=== PATIENT | female | born 1965 | race Caucasian/White ===

== ENCOUNTER → 2016-09-09 | Outpatient (CLI) | payer BC ==
[~2016-09-09] MED LIST: MTR600X PO
--- NOTE | 2016-09-10 12:31 | MAMMOGRAPHY REPORT ---
BILATERAL DIGITAL SCREENING MAMMOGRAM TOMOSYNTHESIS WITH CAD: 09/09/2016 CLINICAL HISTORY: Routine screening. Patient has no complaints. TECHNIQUE: Breast tomosynthesis in addition to standard 2D mammography was performed. Current study was also evaluated with a Computer Aided Detection (CAD) system. COMPARISON: Comparison is made to exams dated: 09/06/2015 mammogram, 09/04/2014 mammogram, 09/01/2013 ma mmogram, 08/26/2012 mammogram, 08/25/2011 mammogram, and 08/21/2010 mammogram - [facility] enter. BREAST COMPOSITION: The tissue of both breasts is heterogeneously dense, which may obscure small ma sses. FINDINGS: The parenchymal pattern is similar to prior exams. There are benign appearing stable micr ocalcifications in the middle and anterior aspect of each breast. No new suspicious mass, data integration architect ural distortion or cluster of microcalcifications is seen. IMPRESSION: ACR BI-RADS CATEGORY 1: NEGATIVE There is no mammographic evidence of malignancy. A 1 year screening mammogram is recommended. The p atient will receive written notification of the results. Approximately 10% of breast cancers are not detected with mammography. A negative mammographic repor t should not delay biopsy if a clinically suggestive mass is present. Mandy Sanchez M.D. ay/:09/09/2016 16:22:25 Deputy Harbormaster: Malka Marx, [facility] letter sent: Normal 1/2 BI-RADS Code: ACR BI-RADS Category 1: Negative
== END | disposition home or self-care (01) ==
LOC: C.MAMM 07:14
PROVIDERS: ATTEND Obstetrics & Gynecology
DX: Z12.31 Encounter for screening mammogram for malignant neoplasm of breast (principal)

== ENCOUNTER → 2017-10-14 | Outpatient (CLI) | payer BC ==
--- NOTE | 2017-10-14 15:37 | MAMMOGRAPHY REPORT ---
BILATERAL DIGITAL SCREENING MAMMOGRAM TOMOSYNTHESIS WITH CAD: 10/14/2017 CLINICAL HISTORY: Routine screening. Patient has no complaints. TECHNIQUE: Breast tomosynthesis in addition to standard 2D mammography was performed. Current study was also evaluated with a Computer Aided Detection (CAD) system. COMPARISON: Comparison is made to exams dated: 09/09/2016 mammogram, 09/06/2015 mammogram, 09/04/2014 mamm ogram, 09/01/2013 mammogram, 08/26/2012 mammogram, and 08/25/2011 mammogram - [facility] er. BREAST COMPOSITION: The tissue of both breasts is heterogeneously dense, which may obscure small mas ses. FINDINGS: The parenchymal pattern is unchanged. No developing mass, architectural distortion or clus ter of suspicious microcalcifications is seen in either breast. IMPRESSION: ACR BI-RADS CATEGORY 2: BENIGN There is no mammographic evidence of malignancy. A 1 year screening mammogram is recommended. The pa tient will receive written notification of the results. Approximately 10% of breast cancers are not detected with mammography. A negative mammographic report should not delay biopsy if a clinically suggestive mass is present. Mandy Sanchez M.D. ay/:10/14/2017 10:48:30 Fabrics And Material Cutter: Malka MCALLISTER(Viridiana)(Jacky), [facility] letter sent: Normal 1/2 BI-RADS Code: ACR BI-RADS Category 2: Benign
== END | disposition home or self-care (01) ==
LOC: C.MAMM 10:01
PROVIDERS: ATTEND Obstetrics & Gynecology
DX: Z12.31 Encounter for screening mammogram for malignant neoplasm of breast (principal)

== ENCOUNTER 2025-05-12 10:09 | Observation (INO) ==
--- NOTE | 2025-04-12 15:07 | Anesthesiology Consultation ---
Date of Service April 12, 2025 Assessment & Plan (1) Encounter for pre-operative examination: - bilat TKA anesthesia risks discussed with patient vs staged and patient wishes to proceed with bilat TKA. Patient is not an outpatient joint candidate. Chart Review Chart Review: Acceptable Risk for Surgery and Patient seen in Pre Admission Testing Teaching & Discussion Pre-Anesthesia Teaching/Discussion Notes: Instructed NPO after midnight before surgery, except medications with 15 cc of water. Medication instructions provided according to the PAT guidelines. 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 Exercise / Class Metabolic Activity II 4-5 Yardwork/Stairs/Walk up hill (denies chest discomfort or shortness of breath with one flight of stairs) Past Family History Family History Father Emphysema lung Other No family history of adverse response to anesthesia Ovarian cancer Denies family history of Breast cancer Colorectal cancer Past Surgical History Surgical History H/O abdominal hysterectomy H/O bilateral mastectomy 2021? H/O breast biopsy History of colonoscopy History of mandibular surgery S/P dilation and curettage S/P LEEP of cervix S/P tubal ligation [place] teeth removed Past Anesthesia History No Hx of Anesthesia Complications and No Family Hx of Anesthesia Complications History of PONV No Hx of PONV and Hx of Motion Sickness Social History Smoking Status: Former smoker Do You Dip or Chew Tobacco: No Smoking End Date: smoked in high school Hx Alcohol Use: Yes alcohol intake frequency: holidays/special occasions only substance use type: does not use Review of Systems Patient denies chest pain, shortness of breath, dyspnea on exertion, snoring, witnessed apneas, reflux, fever, chills, cough, wheezing, or palpitations. Physical Exam Vital Signs Vitals BP 133/77 P 77 TEMP 98.3 SP02 94% on RA RESP 18 Physical Patient resting comfortably in chair in no acute distress, alert and oriented, responding appropriately throughout visit Full cervical extension range of motion without pain TMD 3.5 finger breadths Mallampati Score 2 Dentition: intact, denies chipped or loose teeth, caps/crowns, implants or bridges Lungs: normal respiratory effort. Good air movement, clear throughout to auscultation, no adventitious breath sounds Cardiac: regular rate and rhythm, no murmurs noted Carotid arteries: negative bruit bilat Lab Results Anesthesia Preop Results Results Anesthesia Widget: WBC 7.95 K/ul (4.8-10.8) 04/12/25 Hgb 12.6 g/dl (12.0-16.0) 04/12/25 Hct 39.8 % (37.0-47.0) 04/12/25 Plt 322 K/uL (130-400) 04/12/25 Na 140 mmol/L (136-145) 04/12/25 K 4.4 mmol/L (3.5-5.1) 04/12/25 Cl 107 mmol/L (98-107) 04/12/25 CO2 28 mmol/L (21-32) 04/12/25 BUN 26 mg/dl (6-23) H 04/12/25 Creat 0.95 mg/dl (0.6-1.2) 04/12/25 Glucose Level 100 mg/dl (70-99(Fasting)) H 04/12/25 PT 10.8 Seconds (9.0-12.0) 04/12/25 PTT 26 Seconds (21-31) 04/12/25 INR 1.0 (0.9-1.1) 04/12/25 Blood Type AB Negative 04/12/25 Antibody Screen NEGATIVE 04/12/25 Testing Electrocardiogram Date: 04/12/25 NSR, rate 74 bpm Incomplete RBBB Minimal voltage criteria for LVH, may be normal variant When compared with January 31, 2025 EKG, Incomplete RBBB is now present Chest X-Ray Date: 04/12/25 No active disease
[~2025-05-12 10:09] MED LIST changes: +MIDAZOLAM HCL 1 MG/ML 2ML VIAL ONE; -MTR600X PO; +ROPIVACAINE 0.5% 5 MG/ML 30 ML VIAL ONE
[2025-05-12] MEDS ORDERED: PROPOFOL IV EMULSION 10 MG/ML 20 ML VIAL IV ONE (10:28)
[2025-05-12] MEDS ORDERED: MIDAZOLAM HCL 1 MG/ML 2ML VIAL ONE (10:28)
[2025-05-12] MEDS ORDERED: LIDOCAINE 2% 2 ML VIAL/AMP(20MG/ML) INFIL ONE (10:28)
[2025-05-12] MEDS ORDERED: ONDANSETRON INJ 2 MG/ML 2 ML VIAL ONE (10:28)
[2025-05-12] MEDS: ACETAMINOPHEN 500 MG TAB PO SCH ×2 (10:38→22:23)
[2025-05-12] MEDS: FAMOTIDINE 20 MG TAB PO SCH (10:39)
[2025-05-12] MEDS: LR 60ML/HR IV SCH (10:39)
[2025-05-12] MEDS: GABAPENTIN 600 MG DOSE PO SCH (10:39)
[2025-05-12] MEDS: LR 500ML BOLUS, THEN 15ML/HR IV SCH (11:02)
[2025-05-12] MEDS: dexAMETHasone**PF** 10 MG/ML VIAL IV SCH (11:02)
--- NOTE | 2025-05-12 11:07 | History & Physical Bridge Note ---
Date of Service May 12, 2025 History & Physical Bridge Note I have examined the patient, reviewed the History & Physical and in the interval since the performance of the History & Physical I have noted the following changes of clinical significance: no changes noted
[2025-05-12] MEDS ORDERED: BUPIVACAINE 0.5 % 5 MG/1 ML PF 10ML VIAL ONE (11:26)
[2025-05-12] MEDS ORDERED: ATROPINE SULFATE 0.1 MG/ML 10ML SYR IV PRN (11:54)
[2025-05-12] MEDS ORDERED: ONDANSETRON INJ 2 MG/ML 2 ML VIAL IV PRN (11:54)
[2025-05-12] MEDS ORDERED: HYDROmorphone INJ 1 MG/ML SYRINGE IV PRN (11:54)
[2025-05-12] MEDS: TRANEXAMIC ACID 1,000 MG **IV Pre-op IV SCH (11:58)
[2025-05-12] MEDS ORDERED: KETAMINE HCL 10MG/ML SYR ONE (12:21)
[2025-05-12] MEDS ORDERED: HYDROmorphone INJ 2 MG/ML SYR/VIAL ONE (12:33)
[2025-05-12] MEDS ORDERED: GLYCOPYRROLATE 0.2 MG/ML VIAL ONE (12:38)
[2025-05-12] MEDS: ROPIV 0.5% 246mg, Ketorolac 30mg, EPINEPHrine 0.5mg in NSS INFIL SCH (12:44)
[2025-05-12] MEDS: ORTHO JOINT ANESTHETIC ONE (12:44)
--- NOTE | 2025-05-12 14:17 | Operative Report ---
PG Post Operative Report Pre & Post Diagnosis Operation Date: 05/12/25 12:00 Pre-Op Diagnosis: Bilateral Knee Arthritis Post-Op Diagnosis: Bilateral Knee Arthritis I identified the patient and participated in the time-out.: Yes Procedure Operation Date: 05/12/25 12:00 Actual Procedures p Robotic Assisted Bilateral Total Knee Arthroplasty(Bilateral) - Prudencio Berrios DO Surgeon Prudencio Berrios DO Warehouse Checker Jackie Sharp PA-C Estimated Blood Loss 60 Findings Consistent with Post-Op Diagnosis Specimens Bilateral femoral and tibial bone Description of Procedure Yesenia arrived [facility] for the above procedure. She was seen in the preoperative holding area and the operative extremity was identified and signed. She was given a preoperative antibiotic, TXA, a spinal anesthetic and an adductor nerve block. She was taken back to the operating room and laid on the table in supine position. She was given basic sedation. The operative knees were then prepped and draped in sterile fashion. A timeout was done, and the patient and the operative extremity was properly identified. Right knee: Implants used: I used a [employer] Person[employer] total knee arthroplasty system with a size 9 standard PS femur, D tibia, 32 patella, and a size 12 CPS polyethylene bearing. All components were press-fit in place. A midline incision was made directly over the patella. Dissection was taken down to the extensor mechanism. A medial parapatellar arthrotomy was used. The medial retinaculum was released and the fat pad was mostly excised. The knee was flexed and the ACL, PCL, and meniscus were removed. The alignment of the knee replacement was assisted with a [employer] robotic knee. The femoral array was pinned in the distal femur and the tibial array was pinned using a percutaneous technique in the upper shaft of the tibia. The robot was appropriately calibrated and the structure of the knee was mapped out. The components were then manipulated on the screen to account for any malalignment and to assist in gap balancing. Once I was happy with the placement of the components on the screen, a distal femoral cutting guide was brought in place. The distal femur was then resected. The femur measured to be a size 9. A 4-in-1 cutting block was then put into place by the robot and 2 peg holes were drilled. The 4-in-1 cutting block was then impacted into place and anterior, posterior, and chamfer cuts were made. The cutting block was then brought down to the tibia and pinned into place. The proximal tibia was then resected. The posterior aspect of the knee was then opened up and any additional meniscus fragments and osteophytes were removed. The tibia measured to be a size D. The tibial plate was then placed in the appropriate rotation and the tibia was drilled and punched. Trial components were then placed. The patella was then everted and 9 mm was resected off the posterior aspect of the patella. The patella measured to be a size 32. 3 peg holes were then drilled. A trial patella was placed. A size 12 CPS polyethylene insert was then trialed. The knee was brought through a full range of motion and felt to be stable. Trial components were then removed. The surrounding soft tissues were injected with 100 cc of an orthopedic pain control cocktail. All components were then press-fit into place. The final polyethylene insert was then snapped into place. The tourniquet was deflated. Hemostasis was obtained. A dilute betadyne lavage was then done for 3 minutes. The joint was then irrigated with normal saline solution. The medial parapatellar arthrotomy was then closed with #1 Vicryl suture. The skin was closed with 2-0 Vicryl, 3-0V lock suture, and Marlys Zipline. A soft compressive dressing was placed. Left knee: Implants used: I used a [employer]ireya Persona total knee arthroplasty system with a size 9 standard PS femur, D tibia, 32 patella, and a size 10 CPS polyethylene bearing. All components were press-fit in place. A midline incision was made directly over the patella. Dissection was taken down to the extensor mechanism. A medial parapatellar arthrotomy was used. The medial retinaculum was released and the fat pad was mostly excised. The knee was flexed and the ACL, PCL, and meniscus were removed. The alignment of the knee replacement was assisted with a [employer] robotic knee. The femoral array was pinned in the distal femur and the tibial array was pinned using a percutaneous technique in the upper shaft of the tibia. The robot was appropriately calibrated and the structure of the knee was mapped out. The components were then manipulated on the screen to account for any malalignment and to assist in gap balancing. Once I was happy with the placement of the components on the screen, a distal femoral cutting guide was brought in place. The distal femur was then resected. The femur measured to be a size 9. A 4-in-1 cutting block was then put into place by the robot and 2 peg holes were drilled. The 4-in-1 cutting block was then impacted into place and anterior, posterior, and chamfer cuts were made. The cutting block was then brought down to the tibia and pinned into place. The proximal tibia was then resected. The posterior aspect of the knee was then opened up and any additional meniscus fragments and osteophytes were removed. The tibia measured to be a size D. The tibial plate was then placed in the appropriate rotation and the tibia was drilled and punched. Trial components were then placed. The patella was then everted and 9 mm was resected off the posterior aspect of the patella. The patella measured to be a size 32. 3 peg holes were then drilled. A trial patella was placed. A size 10 CPS polyethylene insert was then trialed. The knee was brought through a full range of motion and felt to be stable. Trial components were then removed. The surrounding soft tissues were injected with 100 cc of an orthopedic pain control cocktail. All components were then press-fit into place. The final polyethylene insert was then snapped into place. The tourniquet was deflated. Hemostasis was obtained. A dilute betadyne lavage was then done for 3 minutes. The joint was then irrigated with normal saline solution. The medial parapatellar arthrotomy was then closed with #1 Vicryl suture. The skin was closed with 2-0 Vicryl, 3-0V lock suture, and Marlys Zipline. A soft compressive dressing was placed. She was then transferred to a hospital bed and taken to the postanesthesia care unit in stable condition. She tolerated the procedure well. Jackie Sharp PA-C, was present for the entire procedure. He was critical for patient positioning, prepping, draping, retraction exposure, wound closure and application of sterile dressing. I attest to the content of the Intraoperative Record and any orders documented therein. Any exceptions are noted below.
[2025-05-12] MEDS ORDERED: PHENYLEPHRINE 100MCG/ML 5ML SYR ONE (14:18)
--- NOTE | 2025-05-12 15:20 | XRay Report ---
XR knee LT 1 or 2V routine CLINICAL HISTORY: Postoperative evaluation. COMPARISON: Left knee radiographs April 12, 2025. FINDINGS: Alignment of the total left knee arthroplasty is anatomic. There is no periprosthetic frac ture or unexpected radiopaque foreign body. IMPRESSION: Expected findings following total left knee arthroplasty. ACT 112: Negative or not required by law. Electronically signed by: Surya Alonso M.D. 05/12/2025 3:19 PM
--- NOTE | 2025-05-12 15:21 | XRay Report ---
XR knee RT 1 or 2V routine CLINICAL HISTORY: Postoperative evaluation. COMPARISON: Right knee radiographs April 12, 2025. FINDINGS: Alignment of the total right knee arthroplasty is anatomic. There is no periprosthetic fra cture or unexpected radiopaque foreign body. IMPRESSION: Expected findings following total right knee arthroplasty. ACT 112: Negative or not required by law. Electronically signed by: Surya Alonso M.D. 05/12/2025 3:20 PM
--- NOTE | 2025-05-12 16:08 | Anesthesiology Progress Note ---
Date of Service May 12, 2025 Anesthesia Post Procedure Vital Signs Vital Signs: Temp Pulse Pulse Resp BP Pulse Ox O2 Del Method 05/12/25 16:00 74 16 147/85 H 100 Nasal Cannula 05/12/25 15:50 59 L 13 145/82 H 100 Nasal Cannula 05/12/25 15:40 36.4 C L 61 12 159/83 H 100 Nasal Cannula 05/12/25 15:30 68 13 133/81 95 Room Air 05/12/25 15:20 60 12 136/80 100 Room Air 05/12/25 15:10 64 13 122/79 100 Oxymask 05/12/25 15:00 60 14 130/79 98 Oxymask 05/12/25 14:50 77 20 128/85 98 Oxymask 05/12/25 14:47 36.5 C 75 18 130/85 97 Oxymask 05/12/25 10:29 36.4 C L 74 20 144/93 H 98 Room Air O2 Flow Rate 05/12/25 16:00 2 05/12/25 15:50 2 05/12/25 15:40 2 05/12/25 15:30 05/12/25 15:20 05/12/25 15:10 2 05/12/25 15:00 6 05/12/25 14:50 6 05/12/25 14:47 6 05/12/25 10:29 Transfer of Care Handoff Completed per policy Notes Mental Status: alert / awake / arousable and participated in evaluation Patient Amnestic to Procedure: Yes Nausea / Vomiting: adequately controlled Pain: adequately controlled Airway Patency, RR, SpO2: stable & adequate BP & HR: stable & adequate Hydration State: stable & adequate Anesthetic Complications: no major complications apparent
[2025-05-12] MEDS ORDERED: NALOXONE HCL 0.4 MG/1 ML VIAL/CARP IV PRN (16:21)
[2025-05-12] MEDS ORDERED: MAGNESIUM HYDROXIDE SUSP 30 ML UDC PO PRN (16:21)
[2025-05-12] MEDS ORDERED: METOCLOPRAMIDE HCL INJ 5 MG/ML 2 ML VIAL IV PRN (16:21)
[2025-05-12] MEDS ORDERED: diphenhydrAMINE Capsule 25 MG CAP PO PRN (16:21)
[2025-05-12] MEDS: ONDANSETRON INJ 2 MG/ML 2 ML VIAL IV PRN (17:25)
[2025-05-12] MEDS: SODIUM CHLORIDE 0.9% 1,000 ML IV SCH (17:32)
[2025-05-12] MEDS: KETOROLAC TROMETHAMINE 15 MG/ML VIAL IV SCH (17:45)
[2025-05-12] MEDS: ASPIRIN 81 MG ECTAB PO SCH (22:19)
[2025-05-12] MEDS: SENNA 8.6 MG TAB PO SCH (22:23)
[2025-05-12] MEDS: DOCUSATE SODIUM 100 MG CAP PO SCH (22:23)
--- NOTE | 2025-05-13 07:35 | Orthopedic Progress Note ---
Date of Service May 13, 2025 Assessment & Plan (1) Status post total bilateral knee replacement not using cement: Overall she is doing well. She is having a little bit of pain in her knees but is controlled with the medications. She will be seen by physical therapy today for ambulation and range of motion exercises. She is on aspirin for DVT prophylaxis. The nursing staff can change her dressings after physical therapy. She can be discharged to home later today. She will follow-up orthopedics in 2 weeks. Herson Patterson was seen and examined at bedside this morning. Overall she is doing very well. She is not having much pain in her knees. She has been up and ambulating to the bathroom. She has no complaints.. Review of Systems All systems reviewed & are unremarkable except as noted in HPI & below. Physical Exam On physical exam both knees, the dressings are clean and dry. Her legs are on full extension. She has active dorsiflexion and plantarflexion of both ankles.. Results & Data Results & Data Laboratory Results . Diagnostic Findings Postoperative x-rays of both knees show the prosthesis to be in anatomic alignment without any evidence of fracture complication, or loosening.. PG Care Time/CCT Total # of Minutes Spent Total Time Spent with Patient: Total time spent is greater than 50% in coordination of care (as documented) at patient's floor/unit and/or counseling patient: Coding Level of Care Code 77130 Post Operative Follow-Up Diagnoses Status post total bilateral knee replacement not using cement Z96.653
[2025-05-13 07:52] VITALS: BP 120/68; PULSE 68; TEMP 98.1; O2SAT 98
[2025-05-13] MEDS: MULTIVITAMIN TAB PO SCH (07:55)
[2025-05-13 11:18] VITALS: RESP 16
== END 2025-05-13 14:04 | disposition home or self-care (01) ==
LOC: 3E 10:09 → ASU 10:09